=== PATIENT | male | born 1985 | race Caucasian/White ===

== ENCOUNTER → 2020-10-17 | Outpatient (CLI) | payer SELFPAY | LOC: YCFC.O 13:02 | PROVIDERS: ATTEND Nurse Practitioner Family | DX: Z20.828 Contact with and (suspected) exposure to other viral communicable diseases (principal); Z11.59 Encounter for screening for other viral diseases ==

== ENCOUNTER → 2020-10-17 | Outpatient (CLI) | payer OTHER | LOC: YCFC.O 10:42 | PROVIDERS: ATTEND Nurse Practitioner Family | DX: Z20.828 Contact with and (suspected) exposure to other viral communicable diseases (principal); Z11.59 Encounter for screening for other viral diseases ==

== ENCOUNTER 2020-10-24 22:18 | Emergency (ER) | payer SELFPAY ==
[2020-10-24] MEDS ORDERED: SULFA/TRIMETH 800/160 (DS) TAB 1 EA TAB PO ONE (22:52)
[2020-10-24] MEDS ORDERED: CIPROFLOXACIN 500 MG TAB PO ONE (22:52)
--- NOTE | 2020-10-24 23:12 | RAD ---
EXAM DESCRIPTION: Foot,Right 3 Views 10/24/2020 11:07 PM CIRCLE EDGER CLINICAL HISTORY: 35 years, Male, multiple ulcers COMPARISON: None. FINDINGS: 3 X-ray views of the right foot (frontal lateral and oblique) were performed. There is an area of linear cortical breakthrough along the distal portion of the proximal phalanx fourth toe with associated surrounding gas formation perhaps related to injury and/or infectious process. No gross articular abnormality is identified. There are no gross intraosseous lesions. No periosteal reaction were seen. Noted is the presence of a small ulceration along the plantar aspect of the first metatarsophalangeal joint area measuring approximately 5.4 mm. Vascular calcifications are identified within the dorsalis pedis and posterior tibial artery. No radiopaque foreign body is identified. IMPRESSION: FRACTURE DISTAL PORTION PROXIMAL PHALANX FOURTH TOE WITH ASSOCIATED SOFT TISSUE GAS PERHAPS RELATED TO INJURY AND/OR INFECTIOUS PROCESS. SMALL ULCERATION ALONG THE PLANTAR ASPECT FIRST METATARSOPHALANGEAL JOINT AREA. VASCULAR OSSIFICATIONS. Electronically signed by: Manuel Thacker MD 10/24/2020 11:10 PM CIRCLE EDGER
[2020-10-25] MEDS ORDERED: SODIUM CHLORIDE 0.9% 1000ML 1,000 ML IVS ONE ×2 (00:12→02:41)
[2020-10-25] MEDS ORDERED: INSULIN, REG.(HUMAN) 100 U/ML VIAL IV ONE ×2 (00:13→02:29)
[2020-10-25] MEDS ORDERED: cefTRIAXone SODIUM 1 GM in SODIUM CHL 0.9% 50ML MIN-BAG+ 50 ML IVPB ONE (00:13)
--- NOTE | 2020-10-25 00:41 | ED.PDOC ---
History of Present Illness - General Chief Complaint: Diabetic Complaint Stated Complaint: sore to Rt foot Time Seen by Provider: 10/24/20 22:30 Source: patient Exam Limitations: no limitations - History of Present Illness Initial Comments: The patient is a 35-year-old male presenting to the emergency room secondary to gradual worsening of the sores on his right foot. The patient has not seen anyone for them. The sores have been getting worse for the last 3 months. No nausea or vomiting. He has not been following his blood sugars. The patient has a 1 cm diameter ulcer over the second metatarsal pad, a 1 cm ulcer over the proximal interphalangeal joint of the fourth digit medially and a much larger 2-1/2 cm ulcer almost completely denuding the lateral side of the same digit with rosa pus and some deformity. There is also a 1 cm ulcer to the lateral aspect of the pinky toe of the right foot. All of these ulcers are on the right foot. There is mild extending erythema. Wound culture is done of the ulcerations. The patient is otherwise feeling at his baseline. No nausea vomiting diarrhea. No chest pain or shortness of breath. No fevers. No pa lpitations. Timing/Duration: other - Started approximately 3 months ago Severity: moderate Improving Factors: nothing Worsening Factors: nothing Associated Symptoms: denies symptoms Allergies/Adverse Reactions: Allergies NO KNOWN ALLERGY Allergy (Verified 09/12/16 17:38) Home Medications: Ambulatory Orders Humulin R 1 units SUBCU PRN PRN 06/22/14 Insulin Glargine [Lantus] 20 units SUBCU BEDTIME 06/22/14 Ciprofloxacin [Cipro] 500 mg PO BID #20 tab 10/25/20 Sulfa/Trimeth 800/160 (Ds) Tab [Bactrim DS Tab] 1 ea PO BID #20 tab 10/25/20 Review of Systems - Review of Systems Constitutional: States: no symptoms reported EENTM: States: no symptoms reported Respiratory: States: no symptoms reported Cardiology: States: no symptoms reported Gastrointestinal/Abdominal: States: no symptoms reported Genitourinary: States: no symptoms reported Musculoskeletal: States: see HPI Skin: States: see HPI Neurological: States: see HPI - Severe chronic peripheral neuropathy related to diabetes Endocrine: States: no symptoms reported All other Systems: No Change from Baseline Past Medical History (General) - Patient Medical History Hx Seizures: No Hx Stroke: No Hx Dementia: No Hx Asthma: No Hx of COPD: No Hx Cardiac Disorders: No Hx Congestive Heart Failure: No Hx Pacemaker: No Hx Hypertension: No Hx Thyroid Disease: No Hx Diabetes: Yes - type 1 Hx Gastroesophageal Reflux: No Hx Renal Disease: No Hx Cancer: No Hx of HIV: No Hx Hepatitis C: No Hx MRSA: No Surgical History: other - Vaccination History Hx Tetanus, Diphtheria Vaccination: Yes - 2013 Hx Influenza Vaccination: Yes - 2013 Hx Pneumococcal Vaccination: No - Social History Hx Tobacco Use: Yes Hx Alcohol Use: No Hx Substance Use: No Hx Substance Use Treatment: No Hx Depression: No Hx Physical Abuse: No Hx Emotional Abuse: No Family Medical History - Family History Mother Living Status: Still Living Hx Cardiac Disease: Yes - OK,HTN Physical Exam - Physical Exam General Appearance: Alert, Comfortable, No apparent distress Eye Exam: bilateral normal Ears, Nose, Throat: hearing grossly normal, normal pharynx - Poor dentition Neck: full range of motion, supple Respiratory: lungs clear, normal breath sounds, no respiratory distress, no accessory muscle use Cardiovascular/Chest: normal peripheral pulses, regular rate, rhythm, no edema Peripheral Pulses: radial,right: 2+, radial,left: 2+, dorsalis pedis,right: 1+, dorsalis pedis,left: 1+ Gastrointestinal/Abdominal: non tender, soft Rectal Exam: deferred Back Exam: no CVA tenderness, no vertebral tenderness Extremity: normal range of motion, no calf tenderness, normal capillary refill Neurologic: media developer II-XII nml as tested, alert, normal mood/affect, oriented x 3, other - Severe peripheral neuropathy. Skin Exam: other - See history of present illness Comments: Vital Signs - 24 hr 10/24/20 10/24/20 10/25/20 22:34 23:48 00:19 Temperature 98.3 F Pulse Rate [ 102 H 101 H 103 H left] Respiratory 18 18 18 Rate Blood Pressure 180/105 164/98 170/107 [Left Arm] O2 Sat by Pulse 97 97 98 Oximetry 10/24/20 23:05 BLOOD CULTURE Stat 10/24/20 23:50 WOUND CULTURE Stat 10/25/20 00:12 Sodium Chloride 0.9% 1000ML [Ns 1000 ml] 1,000 ml IVS ONCE Laboratory Results - last 24 hr 10/24/20 10/24/20 10/24/20 23:00 23:00 23:05 WBC 19.8 H RBC 4.03 L Hgb 11.6 L Hct 33.4 L MCV 83.0 MCH 28.8 MCHC 34.6 RDW 11.9 Plt Count 518 H MPV 7.5 Absolute Neuts (auto) 17.50 H Absolute Lymphs (auto) 0.90 L Absolute Monos (auto) 1.30 H Absolute Eos (auto) 0.00 Absolute Basos (auto) 0.00 Neutrophils % 88.7 H Lymphocytes % 4.5 L Monocytes % 6.6 Eosinophils % 0.0 L Basophils % 0.2 ESR 62 H Sodium 124 L Potassium 4.7 Chloride 83 L Carbon Dioxide 27 Anion Gap 18.7 H BUN 31 H Creatinine 1.68 H BUN/Creatinine Ratio 18.5 Random Glucose 720 H* Serum Osmolality Not Reportable Calcium 8.7 Total Bilirubin 0.5 AST 13 ALT 13 Alkaline Phosphatase 140 H C-Reactive Protein Serum Total Protein 7.5 Albumin 3.4 Globulin 4.1 H Albumin/Globulin Ratio 0.8 L 10/24/20 23:05 WBC RBC Hgb Hct MCV MCH MCHC RDW Plt Count MPV Absolute Neuts (auto) Absolute Lymphs (auto) Absolute Monos (auto) Absolute Eos (auto) Absolute Basos (auto) Neutrophils % Lymphocytes % Monocytes % Eosinophils % Basophils % ESR Sodium Potassium Chloride Carbon Dioxide Anion Gap BUN Creatinine BUN/Creatinine Ratio Random Glucose Serum Osmolality Calcium Total Bilirubin AST ALT Alkaline Phosphatase C-Reactive Protein 1.9 H Serum Total Protein Albumin Globulin Albumin/Globulin Ratio X-ray of the foot shows a fracture of the fourth proximal phalanx and areas of the ulcerations. See reports for details. Progress - Progress Progress: 10/25/20 00:45 The patient is a 35-year-old male presented emergency room secondary to increasing erythema surrounding the chronic ulcerations to his right foot. The patient does obviously have some peripheral arterial disease and significant peripheral neuropathy. X-ray as well does show a fourth proximal phalanx fracture on that side. The patient does have uncontrolled diabetes from which he largely seems to be asymptomatic. He is receiving IV insulin here and IV fluids to help bring the blood sugars down. It will be very hard for him to heal the ulcerations without controlling his blood sugars and he does understand this. The patient has hyponatremia, part of which is pseudohyponatremia from the hyperglycemia. Corrected sodium is approximately 128 or 129. The patient is receiving a liter of IV fluids. He does need to have this rechecked in a week to 10 days. He does have mild acute renal insufficiency likely related to hyperglycemia as well. This needs to be rechecked in the same timeframe. He is asymptomatic from these as well. Blood and wound cultures have been done here today. He is empirically going to be placed on ciprofloxacin and Bactrim with 10-day prescriptions. Obviously he is going to require a much longer course of antibiotics than just 10 days, but further antibiotics should be based on culture results preferably. The patient does understand that he may not heal the phalanx fracture and that there may be osteomyelitis within the fracture site. If that is the case then he may end up with a toe amputation. I want him to follow back up with his primary care doctor within a week. Wounds need to be washed with an antibacterial soap 2-3 times daily. For the next week I want him to do a wet-to-dry dressing to the lateral aspect of the fourth toe 2-3 times a day. It would be beneficial to photo document the wounds every 2 to 3 days to determine adequate response. Baseline labs have been obtained today. He needs to use a platform shoe or a walking boot for the next few months. Follow back up with primary care doctor in 1 week. Inpatient treatment is being deferred at this time secondary to current environmental risks. [email or web address] [phone] - Results/Orders Results/Orders: Final glucose was 414 down from around 750 initially. Departure - Departure Clinical Impression: Hyperglycemia, Hyponatremia, Acute renal insufficiency, Cellulitis Diabetic foot ulcers Qualifiers: Diabetic foot ulcer location: toe Diabetes mellitus type: type 1 Laterality: right Non-pressure ulcer stage: with fat layer exposed Qualified Code(s): E10.621 - Type 1 diabetes mellitus with foot ulcer Toe fracture, right Qualifiers: Encounter type: initial encounter Toe: lesser toe Fracture type: open Phalanx: proximal Fracture alignment: nondisplaced Qualified Code(s): S92.514B - Nondisplaced fracture of proximal phalanx of right lesser toe(s), initial encounter for open fracture Disposition: Discharge to Home or Self Care Condition: Fair Departure Forms: ED Discharge - Pt. Copy, Patient Portal Self Enrollment Instructions: DI for Diabetes Type 2, Diabetic Foot Ulcer (DC) Diet: diabetic diet Activity: increase activity as tolerated Referrals: Bess Hermosillo NP [Primary Care Provider] - 1-2 Weeks Prescriptions: Sulfa/Trimeth 800/160 (Ds) Tab [Bactrim DS Tab] 1 ea PO BID #20 tab Ciprofloxacin [Cipro] 500 mg PO BID #20 tab Home Medications: Ambulatory Orders Humulin R 1 units SUBCU PRN PRN 06/22/14 Insulin Glargine [Lantus] 20 units SUBCU BEDTIME 06/22/14 Ciprofloxacin [Cipro] 500 mg PO BID #20 tab 10/25/20 Sulfa/Trimeth 800/160 (Ds) Tab [Bactrim DS Tab] 1 ea PO BID #20 tab 10/25/20 Additional Instructions: The patient is a 35-year-old male presented emergency room secondary to increasing erythema surrounding the chronic ulcerations to his right foot. The patient does obviously have some peripheral arterial disease and significant peripheral neuropathy. X-ray as well does show a fourth proximal phalanx fracture on that side. The patient does have uncontrolled diabetes from which he largely seems to be asymptomatic. No evidence of DKA. He is receiving IV insulin here and IV fluids to help bring the blood sugars down. It will be very hard for him to heal the ulcerations without controlling his blood sugars and he does understand this. The patient has hyponatremia, part of which is pseudohyponatremia from the hyperglycemia. Corrected sodium is approximately 128 or 129. The patient is receiving a liter of IV fluids. He does need to have this rechecked in a week to 10 days. He does have mild acute renal insufficiency likely related to hyperglycemia as well. This needs to be rech ecked in the same timeframe. He is asymptomatic from these as well. Blood and wound cultures have been done here today. He is empirically going to be placed on ciprofloxacin and Bactrim with 10-day prescriptions. Obviously he is going to require a much longer course of antibiotics than just 10 days, but further antibiotics should be based on culture results preferably. The patient does understand that he may not heal the phalanx fracture and that there may be osteomyelitis within the fracture site. If that is the case then he may end up with a toe amputation. I want him to follow back up with his primary care doctor within a week. Wounds need to be washed with an antibacterial soap 2-3 times daily. For the next week I want him to do a wet-to-dry dressing to the lateral aspect of the fourth toe 2-3 times a day. It would be beneficial to photo document the wounds every 2 to 3 days to determine adequate response. Baseline labs have been obtained today. He needs to use a platform shoe or a walking boot for the next few months. Follow back up with primary care doctor in 1 week. Inpatient treatment is being deferred at this time secondary to current environmental risks.
[2020-10-25] MEDS ORDERED: POVIDONE IODINE 10 % 15 ML UD TOP ONE (00:58)
[2020-10-25] MEDS ORDERED: NEOMYCIN-BACITRACIN-POLYMYXIN 0.9 GM UD TOP ONE (00:59)
[2020-10-25] MEDS ORDERED: INSULIN DETEMIR 100 UNITS/ML PEN SUBCU ONE (02:34)
[2020-10-25 04:14] VITALS: O2SAT 99
[2020-10-25 05:09] VITALS: BP 165/92; TEMP 97.7
== END 2020-10-25 05:08 | disposition home or self-care (01) ==
LOC: ER 22:18
DX: E10.621 Type 1 diabetes mellitus with foot ulcer (principal); L97.519 Non-pressure chronic ulcer of other part of right foot with unspecified severity; L97.419 Non-pressure chronic ulcer of right heel and midfoot with unspecified severity; E10.65 Type 1 diabetes mellitus with hyperglycemia; S92.514A Nondisplaced fracture of proximal phalanx of right lesser toe(s), initial encounter for closed fracture; E87.1 Hypo-osmolality and hyponatremia; N18.9 Chronic kidney disease, unspecified; L03.115 Cellulitis of right lower limb; E11.42 Type 2 diabetes mellitus with diabetic polyneuropathy; Z87.891 Personal history of nicotine dependence; Z79.899 Other long term (current) drug therapy; Z79.4 Long term (current) use of insulin; X58.XXXA Exposure to other specified factors, initial encounter; Y92.9 Unspecified place or not applicable
CPT/HCPCS: 73630; 80053; 82947; 82948; 85025; 85651; 86140; 87040; 87070; 87186; J0696; J1815; J7030; J7050

== ENCOUNTER → 2020-12-07 | Outpatient (CLI) | payer SELFPAY | LOC: YCFC.O 10:14 | PROVIDERS: ATTEND Nurse Practitioner Family | DX: Z20.828 Contact with and (suspected) exposure to other viral communicable diseases (principal) ==